=== PATIENT | female | born 1995 | race Caucasian/White ===

== ENCOUNTER 2019-02-11 21:03 | Emergency (ER) | payer OTHER ==
[2019-02-11] MEDS ORDERED: methylPREDNISolone NA SUCC 125 MG/2 ML VIAL IVPUSH ONE (21:07)
[2019-02-11] MEDS ORDERED: FAMOTIDINE 20 MG/50 ML IVPB 20 MG/50 ML MG IVPB ONE ×3 (21:07→21:28)
[2019-02-11 21:08] VITALS: BP 124/84; PULSE 87; TEMP 99.1; BMI 33.3
[2019-02-11] MEDS ORDERED: methylPREDNISolone NA SUCC 125 MG/2 ML VIAL ONE ×2 (21:11→21:12)
--- NOTE | 2019-02-11 21:11 | PDOC ---
Rapid Medical Evaluation Time Seen by Provider: 02/11/19 21:05 Medical Evaluation: 02/11/19 21:05 I have performed a brief in-person evaluation of this patient. The patient presents with a chief complaint of: 5wk F c/o throat and chest tightness, lip tingling after eating a nectarine. NO prior h/o similar symptoms. Pt did not take any meds for symptoms. Pertinent physical exam findings: Mild difficulty breathing. No angioedema. NO uvula edema. No stridor, no wheezing. I have ordered the following: Solumedrol, benadryl, pepcid. The patient will proceed to the ED for further evaluation. 02/11/19 21:09
--- NOTE | 2019-02-11 22:14 | PDOC ---
Documentation entered by Alexandra Jeronimo SCRIBE, acting as scribe for Angelika Mena MD. Angelika Mena MD: This documentation has been prepared by the larryibePhani Lincy, SCRIBE, under my direction and personally reviewed by me in its entirety. I confirm that the documentation accurately reflects all work, treatment, procedures, and medical decision making performed by me. Attending Attestation - Resident Resident Name: Navin Tobar - ED Attending Attestation I have performed the following: I have examined & evaluated the patient, The case was reviewed & discussed with the resident, I agree w/resident's findings & plan, Exceptions are as noted - HPI HPI: 02/11/19 22:21 The patient is a 23-year-old female, currently 5 weeks , with no reported past medical history presents to the emergency department s/p an allergic reaction after eating a nectarine. 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 The patient states her lip began to swell, and she had trouble swallowing. The patient reports she also endorses dizziness, SOB, and chest pain. Denies prior use of Epi-pen. Denies hx of severe or mild allergic reactions. since then she is complaining of lower abd cramping. no vag bleeding. 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 (next appointment Feb 24) 02/12/19 00:38 - Physicial Exam PE: 02/11/19 22:12 awake alert mild lower lip swelling. no uvular edema. no stridor. lungs clear bilat no wheezing. heart rrr no jmrg abd soft mild nontender. ext wwp no edema. skin warm and dry no rash. - Medical Decision Making 02/11/19 22:10 23 yo at 5 weeks LMP 01/05 here with allergic reaction after eating a nectarine. no h/o severe allergic reaction in the past. no n/v c/o feelig lightheaded and sob with chest pain . noted lip swelling and buring sensation. lower lip. no syncope. no h/o prior allergies. no new meds. is currently . c/o cramping, no bleeding. has not confirmed iup. follows with OB at [address] ( Ericka arana) on exam pt with minimal lip swelling. no uvular edema. no stridor. no wheezing no rash. plan treat with pepcid steroids and benadryl. will call pt ob. will fidel require steroids for 3 days. will dc with epi pen for severity of reaction. will also eval iup due to lower abd cramping. pt currently . 02/12/19 01:50 pt tvus with gestational sac. yolk sac, no pole visualized. will dc on steroids x 3 days. benadryl as needed for itching. pt given rx for epi pen for severe allergic. reaction recommend noelle, ob/ surgical manager fu.
--- NOTE | 2019-02-11 22:23 | PDOC ---
History of Present Illness <StephynathanAngelika - Last Filed: 02/12/19 01:51> - General History Source: Patient Exam Limitations: No Limitations - History of Present Illness Initial Comments: 02/11/19 22:18 23 yo , 5 wk F presents soon after ingestion of nectarine causing lip swelling and burning, non-radiating chest pain, SOB, and dizziness. Patient felt her throat was closing a little but maintained airway. Denies rash, abdominal pain, n/v/d, and hives. Was given steroids, benadryl, and PPI - felt cramps after but no vaginal bleeding or discharge. 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 @ [address] <Navin Tobar - Last Filed: 02/12/19 21:41> - General Chief Complaint: Allergic Reaction Stated Complaint: ALLERGIC REACTION Time Seen by Provider: 02/11/19 21:05 Past History <Angelika Mena - Last Filed: 02/12/19 01:51> - Past Medical History COPD: No - Suicide/Smoking/Psychosocial Hx Smoking History: Never smoked <Navin Tobar - Last Filed: 02/12/19 21:41> - Past Medical History Allergies/Adverse Reactions: Allergies Allergy/AdvReac Type Severity Reaction Status Date / Time No Known Allergies Allergy Verified 02/11/19 21:06 Home Medications: Ambulatory Orders Epinephrine [Epipen] 0.3 mg IJ ONCE PRN #1 auto.injct 02/12/19 predniSONE [Deltasone -] 20 mg PO DAILY #3 tablet 02/12/19 Review of Systems - Review of Systems Able to Perform ROS?: Yes Is the patient limited Mohawk proficient: No Constitutional: Yes: Symptoms Reported, See HPI, Diaphoresis. No: Chills, Fever , Loss of Appetite, Malaise, Night Sweats, Weakness, Weight Stable, Unintentional Wgt. Loss, Unexplained wgt Loss, Other HEENTM: Yes: Symptoms Reported, See HPI, Throat Swelling (see hpi, maintained airway ). No: Eye Pain, Blurred Vision, Tearing, Recent change in vision, Double Vision, Cataracts, Ear Pain, Ocular Prothesis, Ear Discharge, Nose Pain, Nose Congestion, Tinnitus, Nose Bleeding, Hearing Loss, Throat Pain, Mouth Pain , Dental Problems, Difficulty Swallowing, Mouth Swelling, Other Respiratory: Yes: See HPI, Shortness of Breath. No: Cough, Orthopnea, Stridor, Wheezing Cardiac (ROS): Yes: See HPI, Chest Pain, Lightheadedness. No: Irregular Heart Rate, Palpitations, Syncope, Chest Tightness ABD/GI: No: Symptoms Reported, See HPI, Abdominal Distended, Abd. Pain w/ defecation, Blood Streaked Bowels, Constipated, Diarrhea, Difficulty Swallowing , Nausea, Poor Appetite, Poor Fluid Intake, Rectal Bleeding, Vomiting, Indigestion, Abdominal cramping, Tarry Stools, Other : No: Symptoms Reported, See HPI, Burning, Dysuria, Discharge, Frequency, Flank Pain, Hematuria, Incontinence, Pain, Urgency, Testicular Mass, Testicular Swelling, Lesions, Testicular Pain, Other Musculoskeletal: No: Symptoms Reported, See HPI, Back Pain, Gout, Joint Pain, Joint Swelling, Muscle Pain, Muscle Weakness, Neck Pain, Joint Stiffness, Other Integumentary: No: Symptoms Reported, See HPI, Bruising, Change in Color, Change in Hair/Nails, Dryness, Erythema, Flushing, Lesions, Lumps, Pallor, Pruritus, Rash, Sweating, Other Neurological: Yes: See HPI, Dizziness. No: Headache, Numbness, Paresthesia, Pre -Existing Deficit, Seizure, Tingling, Tremors, Weakness, Unsteady Gait, Ataxia, Other Psychiatric: No: Anxiety, Depression, Frequent Crying, Stressors, Sleep Pattern Change, Emotional Problems, Mood Swings, Change in Appetite, Other Endocrine: No: Symptoms Reported, See HPI, Excessive Sweating, Flushing, Intolerance to Cold, Intolerance to Heat, Increased Hunger, Increased Thirst, Increased Urine, Unexplained Weight Gain, Unexplained Weight Loss, Change in Weight, Other Hematologic/Lymphatic: No: Symptoms Reported, See HPI, Anemia, Blood Clots, Easy Bleeding, Easy Bruising, Bleeding Diathesis, Lymph Node Abnormalities, Swollen Glands, Other All Other Systems: Reviewed and Negative <Navin Tobar - Last Filed: 02/12/19 21:41> *Physical Exam - Vital Signs Last Vital Signs Temp Pulse Resp BP Pulse Ox 99.1 F 87 24 H 124/84 98 02/11/19 21:06 02/11/19 21:06 02/11/19 21:06 02/11/19 21:06 02/11/19 21:06 <Angelika Mena - Last Filed: 02/12/19 01:51> - Vital Signs Last Vital Signs Temp Pulse Resp BP Pulse Ox 99.1 F 87 24 H 124/84 98 02/11/19 21:06 02/11/19 21:06 02/11/19 21:06 02/11/19 21:06 02/11/19 21:06 - Physical Exam Comments: 02/11/19 22:26 GEN: Resting comfortably in bed, NAD HEENT: NC/AT, EOMI, PERRLA, CN II-XII intact. No uvular deviation or edema. No posterior pharynx edema or erythema. Lips mildly edematous. Moist mucous membranes CV: S1/S2, RRR, no m/r/g LUNG: CTAB, no wheezes, crackles, rales, rhonchi. No stridor GI: soft, ndnt, +BS. Neg CVAT b/l. No masses EXTREMITIES: 2+ distal pulses. No LE edema. No obvious deformities of all extremities NEURO: AAOx3, conversing appropriately, moving all extremities SKIN: no rashes, hives, or erythema noted <Navin Tobar - Last Filed: 02/12/19 21:41> ED Treatment Course - LABORATORY CBC & Chemistry Diagram: 02/11/19 23:00 02/11/19 23:00 - ADDITIONAL ORDERS Additional order review: Laboratory Results 02/11/19 02/11/19 23:00 23:00 Sodium 138 Potassium 3.9 Chloride 104 Carbon Dioxide 28 Anion Gap 6 L BUN 10.0 Creatinine 0.6 Est GFR (CKD-EPI)AfAm 148.90 Est GFR (CKD-EPI)NonAf 128.48 Random Glucose 94 Calcium 9.4 Total Bilirubin 0.3 AST 16 ALT 25 Alkaline Phosphatase 66 Total Protein 7.4 Albumin 3.7 Beta HCG, Quant 1616.5 02/11/19 23:00 RBC 4.17 MCV 88.3 MCHC 33.6 RDW 14.1 MPV 8.4 Neutrophils % 74.9 Lymphocytes % 20.6 Monocytes % 3.1 L Eosinophils % 1.0 Basophils % 0.4 - Medications Given in the ED: ED Medications Discontinued Medications Generic Name Dose Route Start Last Admin Trade Name Freq PRN Reason Stop Dose Admin Diphenhydramine HCl 50 mg 02/11/19 21:06 02/11/19 21:21 Benadryl Injection - IVPUSH 02/11/19 21:07 50 mg ONCE ONE Administration Famotidine/Sodium Chloride 20 mg in 50 mls @ 100 mls/hr 02/11/19 21:07 21:26 Pepcid 20 Mg Premixed Ivpb - IVPB 02/11/19 21:36 100 mls/hr ONCE ONE Administration Methylprednisolone Sodium Succinate 125 mg 02/11/19 21:07 02/11/19 21:21 Solu-Medrol - IVPUSH 02/11/19 21:08 125 mg ONCE ONE Administration <Angelika Mena - Last Filed: 02/12/19 01:51> - LABORATORY CBC & Chemistry Diagram: 02/11/19 23:00 02/11/19 23:00 - RADIOLOGY Radiology Studies Ordered: Category Date Time Status TRANSVAGINAL ULTRASOUND US [US] Stat Ultrasound 02/11/19 22:10 Ordered - Medications Given in the ED: ED Medications Discontinued Medications Generic Name Dose Route Start Last Admin Trade Name Melody PRN Reason Stop Dose Admin Diphenhydramine HCl 50 mg 02/11/19 21:06 02/11/19 21:21 Benadryl Injection - IVPUSH 02/11/19 21:07 50 mg ONCE ONE Administration Famotidine/Sodium Chloride 20 mg in 50 mls @ 100 mls/hr 02/11/19 21:07 21:26 Pepcid 20 Mg Premixed Ivpb - IVPB 02/11/19 21:36 100 mls/hr ONCE ONE Administration Methylprednisolone Sodium Succinate 125 mg 02/11/19 21:07 02/11/19 21:21 Solu-Medrol - IVPUSH 02/11/19 21:08 125 mg ONCE ONE Administration <Navin Tobar - Last Filed: 02/12/19 21:41> Medical Decision Making - Medical Decision Making 02/11/19 22:28 23 yo F @ 5 weeks presents with allergic reaction (lip swelling and burning, SOB, chest pain) after nectarine ingestion. Received benadryl, PPI , and steroids in rapid assessment. Patient feeling better at time of evaluation , no signs of airway, breathing, or circulatory compromise. No uvular deviation or edema, no posterior pharynx edema noted, and no stridor on exam. Allergic reaction in - CBC, CMP, B-hCG - Benadryl, steroids, and PPI given - TVUS - Obs 3 hours Dispo: home w/ epi 02/11/19 23:40 Pt reassessed - she is feeling better, will continue to monitor, f/u US Labs reviewed 02/11/19 23:59 Signed out to Night team <Navin Tobar - Last Filed: 02/12/19 21:41> *DC/Admit/Observation/Transfer <Angelika Mena - Last Filed: 02/12/19 01:51> - Discharge Dispostion Decision to Admit order: No <Navin Tobar - Last Filed: 02/12/19 21:41> Diagnosis at time of Disposition: Allergic reaction Qualifiers: Encounter type: initial encounter Qualified Code(s): T78.40XA - Allergy, unspecified, initial encounter - Discharge Dispostion Disposition: HOME Condition at time of disposition: Good - Prescriptions Prescriptions: Epinephrine [Epipen] 0.3 mg IJ ONCE PRN #1 auto.injct PRN Reason: allergic reaction predniSONE [Deltasone -] 20 mg PO DAILY #3 tablet - Patient Instructions Printed Discharge Instructions: Medications and , DI for General Allergic Reactions Additional Instructions: You were assessed and treated in the Emergency Department. We highly recommend follow up for further work up. Please follow up with your primary care physician for further workup in the next 3-4 days. Please pick pack worker an epi-pen from your pharmacy. Please return to the Emergency Department if you experience any of the following : - worsening of your symptoms - shortness of breath, wheezing - chest pain - swelling of your lips or throat - vaginal bleeding - change in behavior - any symptoms that concern you you should take prednisone 20 mg starting tomrrow 02/12 for 3 days one tab daily. you should also take vitamins. 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
[2019-02-11 23:08] LABS: BASO % 0.4 % (0-2.0); HEMATOCRIT 36.9 % (32.4-45.2); HEMOGLOBIN 12.4 GM/dL (10.7-15.3); LYMPH % 20.6 % (8-40); MCH 29.7 pg (25.7-33.7); MCHC 33.6 g/dl (32.0-36.0); MEAN CELL VOLUME 88.3 fl (80-96); MEAN PLT VOLUME 8.4 fl (7.5-11.1); MONO % 3.1 % (3.8-10.2); NEUT % 74.9 % (42.8-82.8); PLATELET COUNT 322 K/MM3 (134-434); RBC 4.17 M/mm3 (3.60-5.2); RDW 14.1 % (11.6-15.6); WHITE BLOOD COUNT 11.6 K/mm3 (4.0-10.0)
[2019-02-11 23:26] LABS: ALBUMIN 3.7 g/dl (3.4-5.0); BILIRUBIN,TOTAL 0.3 mg/dL (0.2-1); CALCIUM 9.4 mg/dL (8.5-10.1); CREATININE 0.6 mg/dL (0.55-1.3); POTASSIUM 3.9 mmol/L (3.5-5.1); TOT PROT 7.4 g/dl (6.4-8.2)
== END 2019-02-12 02:21 | disposition home or self-care (01) ==
LOC: JER 21:03
PROC: 3E033GC Introduction of Other Therapeutic Substance into Peripheral Vein, Percutaneous Approach (ICD-10-PCS; principal; 2019-02-11)
PROC: 3E033GC Introduction of Other Therapeutic Substance into Peripheral Vein, Percutaneous Approach (ICD-10-PCS; 2019-02-11)
PROC: 3E0333Z Introduction of Anti-inflammatory into Peripheral Vein, Percutaneous Approach (ICD-10-PCS; 2019-02-11)
DX: O99.89 Other specified diseases and conditions complicating pregnancy, childbirth and the puerperium (principal); T78.1XXA Other adverse food reactions, not elsewhere classified, initial encounter; X58.XXXA Exposure to other specified factors, initial encounter; Z3A.01 Less than 8 weeks gestation of pregnancy
CPT/HCPCS: 36415; 76830-TC; 80053; 84702; 85025; 96365; 96375; 99282-25

== ENCOUNTER 2021-05-18 10:46 | Emergency (ER) | payer OTHER ==
[2021-05-18 10:54] VITALS: BP 113/77; PULSE 97; TEMP 98.8; BMI 30.7
[2021-05-18] MEDS ORDERED: HIV POST EXPOSURE PROPHYLAXIS KIT NR ONE (11:29)
[2021-05-18] MEDS ORDERED: HIV POST EXPOSURE PROPHYLAXIS KIT PO ONE ×2 (11:55→11:59)
[2021-05-18] MEDS ORDERED: DIPHTH,PERTUSS(ACELL),TET 0.5 ML DISP.SYRIN IM ONE ×2 (12:25→12:26)
[2021-05-18 12:32] LABS: BASO % 0.5 % (0-2.0); EOS % 1.7 % (0-4.5); HEMATOCRIT 40.4 % (32.4-45.2); HEMOGLOBIN 13.6 GM/dL (10.7-15.3); LYMPH % 39.1 % (8-40); MCH 29.1 pg (25.7-33.7); MCHC 33.8 g/dl (32.0-36.0); MEAN CELL VOLUME 86.2 fl (80-96); MEAN PLT VOLUME 8.5 fl (7.5-11.1); MONO % 4.6 % (3.8-10.2); NEUT % 54.1 % (42.8-82.8); PLATELET COUNT 322 10^3/uL (134-434); RBC 4.68 M/mm3 (3.60-5.2); RDW 14.4 % (11.6-15.6); WHITE BLOOD COUNT 7.2 K/mm3 (4.0-10.0)
[2021-05-18 12:54] LABS: CALCIUM 9.6 mg/dL (8.5-10.1)
[2021-05-18 12:55] LABS: ALBUMIN 3.6 g/dl (3.4-5.0); BLOOD UREA NITROGEN 9.2 mg/dL (7-18)
[2021-05-18 12:58] LABS: CREATININE 0.5 mg/dL (0.55-1.3)
[2021-05-18 12:59] LABS: BILIRUBIN,TOTAL 0.5 mg/dL (0.2-1); TOT PROT 7.8 g/dl (6.4-8.2)
[2021-05-18 13:54] LABS: HIV INTERPRETATION NEGATIVE (NEGATIVE)
== END 2021-05-18 13:15 | disposition home or self-care (01) ==
LOC: JER 10:46
PROC: 3E0234Z Introduction of Serum, Toxoid and Vaccine into Muscle, Percutaneous Approach (ICD-10-PCS; principal; 2021-05-18)
DX: S61.232A Puncture wound without foreign body of right middle finger without damage to nail, initial encounter (principal); W46.1XXA Contact with contaminated hypodermic needle, initial encounter
CPT/HCPCS: 36415; 80053; 85025; 86704; 86803; 87340; 87389; 87517; 90715; 99283-25

== ENCOUNTER 2022-06-13 23:48 | Emergency (ER) | payer OTHER ==
[2022-06-14 00:05] VITALS: BP 124/87; PULSE 103; RESP 22; TEMP 99.2; BMI 30.7
[2022-06-14] MEDS ORDERED: ALBUTEROL SO4 2.5/IPRATROPIUM 0.5 INH SOL 3 ML VIAL.NEB. NEB ONE (00:08)
[2022-06-14] MEDS ORDERED: ALBUTEROL SO4 HFA INHALER IH ONE (01:21)
== END 2022-06-14 01:24 | disposition home or self-care (01) ==
LOC: JER 23:48
DX: J45.901 Unspecified asthma with (acute) exacerbation (principal)
CPT/HCPCS: 0241U-QW; 99283-25

== ENCOUNTER 2022-08-10 14:19 | Emergency (ER) | payer OTHER ==
[2022-08-10 14:24] VITALS: BP 115/72; PULSE 82; RESP 18; TEMP 97; BMI 31.6
[2022-08-10] MEDS ORDERED: IBUPROFEN 600 MG TABLET (FP) PO ONE ×2 (15:30→15:39)
== END 2022-08-10 15:40 | disposition home or self-care (01) ==
LOC: JERFT 14:19
DX: S96.912A Strain of unspecified muscle and tendon at ankle and foot level, left foot, initial encounter (principal); X50.0XXA Overexertion from strenuous movement or load, initial encounter
CPT/HCPCS: 73610-TC-LT-FY; 99283-25

== ENCOUNTER 2023-07-03 10:09 | Emergency (ER) | payer OTHER ==
[2023-07-03 10:26] VITALS: BP 101/66; PULSE 85; RESP 18; TEMP 98.8; BMI 33.3
[2023-07-03 12:16] LABS: BASO % 0.6 % (0-2.0); EOS % 4.8 % (0-4.5); HEMATOCRIT 41.5 % (32.4-45.2); HEMOGLOBIN 13.9 GM/dL (10.7-15.3); LYMPH % 39.2 % (8-40); MCH 29.6 pg (25.7-33.7); MCHC 33.5 g/dl (32.0-36.0); MEAN CELL VOLUME 88.4 fl (80-96); MONO % 5.7 % (3.8-10.2); NEUT % 49.7 % (42.8-82.8); PLATELET COUNT 344 10^3/uL (134-434); RBC 4.69 M/mm3 (3.60-5.2); RDW 14.1 % (11.6-15.6); WHITE BLOOD COUNT 7.7 K/mm3 (4.0-10.0)
[2023-07-03 12:41] LABS: CALCIUM 9.5 mg/dL (8.5-10.1)
[2023-07-03 12:42] LABS: ALBUMIN 3.9 g/dl (3.4-5.0); BLOOD UREA NITROGEN 10.7 mg/dL (7-18)
[2023-07-03 12:44] LABS: CREATININE 0.6 mg/dL (0.55-1.3); URIC ACID 4.9 mg/dL (2.6-7.2)
[2023-07-03 12:45] LABS: PHOSPHOROUS 3.8 mg/dL (2.5-4.9)
[2023-07-03 12:46] LABS: TOT PROT 7.8 g/dl (6.4-8.2)
[2023-07-03 12:47] LABS: BILIRUBIN,TOTAL 0.5 mg/dL (0.2-1)
[2023-07-03 13:53] LABS: HIV INTERPRETATION NEGATIVE (NEGATIVE)
== END 2023-07-03 13:50 | disposition home or self-care (01) ==
LOC: JERFT 10:09
DX: S61.031A Puncture wound without foreign body of right thumb without damage to nail, initial encounter (principal); W46.0XXA Contact with hypodermic needle, initial encounter
CPT/HCPCS: 36415; 80053; 82465; 82977; 83615; 84100; 84478; 84550; 85025; 86704; 86803; 87340; 87389; 87517; 99283-25

== ENCOUNTER 2023-08-29 11:01 | Emergency (ER) | payer OTHER ==
[2023-08-29 11:09] VITALS: BP 117/78; PULSE 96; RESP 20; TEMP 97.8; BMI 33.3
[2023-08-29] MEDS ORDERED: KETOROLAC TROMETHAMINE 30 MG/1 ML VIAL ONE (11:31)
[2023-08-29] MEDS ORDERED: AMOX TR/POT CLAV 875MG/125MG TABLETS (FP) ONE (11:31)
[2023-08-29] MEDS: AMOX TR/POT CLAV 875MG/125MG TABLETS (FP) PO ONE (11:35)
[2023-08-29] MEDS: KETOROLAC TROMETHAMINE 30 MG/1 ML VIAL IM ONE (11:35)
== END 2023-08-29 11:38 | disposition home or self-care (01) ==
LOC: JERFT 11:01
PROC: 3E0233Z Introduction of Anti-inflammatory into Muscle, Percutaneous Approach (ICD-10-PCS; principal; 2023-08-29)
DX: R51.9 Headache, unspecified (principal); R09.81 Nasal congestion; J32.9 Chronic sinusitis, unspecified; Z20.822 Contact with and (suspected) exposure to COVID-19
CPT/HCPCS: 0241U-QW; 99284-25

== ENCOUNTER 2023-11-02 14:22 | Emergency (ER) | payer OTHER ==
[2023-11-02 14:43] VITALS: RESP 18; BMI 33.3
[2023-11-02] MEDS ORDERED: ONDANSETRON 4 MG/2 ML VIAL ONE (15:32)
[2023-11-02] MEDS ORDERED: ACETAMINOPHEN INJECTION 100 ML IVPB ONE (15:32)
[2023-11-02] MEDS: ACETAMINOPHEN 1000 MG/100 ML BAG IVPB ONE (15:44)
[2023-11-02] MEDS: SODIUM CHLORIDE 0.9% 500 ML INFUS.BAG IV ONE (15:44)
[2023-11-02] MEDS: ONDANSETRON 4 MG/2 ML VIAL IVPUSH ONE (15:44)
[2023-11-02 15:47] LABS: BASO % 0.6 % (0-2.0); EOS % 5.3 % (0-4.5); HEMATOCRIT 39.4 % (32.4-45.2); HEMOGLOBIN 13.2 GM/dL (10.7-15.3); LYMPH % 37.6 % (8-40); MCH 29.4 pg (25.7-33.7); MCHC 33.4 g/dl (32.0-36.0); MEAN PLT VOLUME 8.4 fl (7.5-11.1); MONO % 6.9 % (3.8-10.2); NEUT % 49.6 % (42.8-82.8); PLATELET COUNT 337 10^3/uL (134-434); RBC 4.47 M/mm3 (3.60-5.2); RDW 14.6 % (11.6-15.6); WHITE BLOOD COUNT 9.7 K/mm3 (4.0-10.0)
[2023-11-02 15:48] LABS: EPI CELLS >36 /uL (0-25.1); HCG,QUALITATIVE URINE Negative; HYALINE CASTS 0 /uL (0-3.1); PH,URINE 7.5 (5.0-8.0); URINE APPEARANCE CLOUDY; URINE BACTERIA 1537 /uL (0-1359); URINE BILIRUBIN NEGATIVE (NEGATIVE); URINE COLOR YELLOW; URINE GLUCOSE (UA) NEGATIVE (NEGATIVE); URINE KETONE NEGATIVE (NEGATIVE); URINE LEUK ESTERASE TRACE (NEGATIVE); URINE NITRITE NEGATIVE (NEGATIVE); URINE PROTEIN NEGATIVE (NEGATIVE); URINE RBC 11 /uL (0-23.9); URINE UROBILINOGEN 0.2 mg/dL (0.2-1.0); URINE WBC 40 /uL (0-25.8)
[2023-11-02 15:53] LABS: INR 0.98 (0.83-1.09); PROTHROMBIN TIME (PATIENT) 11.4 SEC (9.7-13.0)
[2023-11-02 17:14] LABS: POTASSIUM 3.7 mmol/L (3.5-5.1)
[2023-11-02 17:16] LABS: CALCIUM 9.4 mg/dL (8.5-10.1)
[2023-11-02 17:17] LABS: ALBUMIN 3.6 g/dl (3.4-5.0); BLOOD UREA NITROGEN 6.2 mg/dL (7-18)
[2023-11-02 17:20] LABS: CREATININE 0.6 mg/dL (0.55-1.3)
[2023-11-02 17:21] LABS: BILIRUBIN,TOTAL 0.3 mg/dL (0.2-1); TOT PROT 7.4 g/dl (6.4-8.2)
[2023-11-02 18:57] VITALS: BP 100/61; PULSE 82; TEMP 98.7
== END 2023-11-02 19:00 | disposition home or self-care (01) ==
LOC: JER 14:22
PROC: 3E030NZ Introduction of Analgesics, Hypnotics, Sedatives into Peripheral Vein, Open Approach (ICD-10-PCS; principal; 2023-11-02)
PROC: 3E030GC Introduction of Other Therapeutic Substance into Peripheral Vein, Open Approach (ICD-10-PCS; 2023-11-02)
DX: R10.31 Right lower quadrant pain (principal); R11.2 Nausea with vomiting, unspecified; R19.7 Diarrhea, unspecified
CPT/HCPCS: 36415; 74177-TC; 80053; 81003; 84703; 85025; 85610; 85730; 87086; 99285-25; J0131; Q9967

== ENCOUNTER 2024-07-11 07:40 | Day surgery (SDC) | payer OTHER ==
[2024-07-08 09:30] VITALS: BMI 35.7
[2024-07-11] MEDS ORDERED: ONDANSETRON 4 MG/2 ML VIAL IVPUSH PRN (08:53)
[2024-07-11] MEDS ORDERED: IBUPROFEN 400 MG TABLET (FP) PO PRN (09:45)
[2024-07-11] MEDS ORDERED: ACETAMINOPHEN 325 MG TABLET (FP) PO PRN (09:45)
[2024-07-11 11:11] VITALS: BP 102/62; RESP 18
[2024-07-11 11:25] VITALS: PULSE 86; TEMP 97.8
[2024-07-11] MEDS ORDERED: oxyCODONE HCL 5 MG TABLET ONE (11:35)
[2024-07-11] MEDS: oxyCODONE HCL 5 MG TABLET PO PRN (11:37)
== END 2024-07-11 12:05 | disposition home or self-care (01) ==
LOC: JASU-SURG 07:40
PROVIDERS: ATTEND Specialist
PROC: 0UBG7ZZ Excision of Vagina, Via Natural or Artificial Opening (ICD-10-PCS; 2024-07-11)
PROC: 0UJH8ZZ Inspection of Vagina and Cul-de-sac, Via Natural or Artificial Opening Endoscopic (ICD-10-PCS; principal; 2024-07-11 08:00)
PROC: 0UBC7ZX Excision of Cervix, Via Natural or Artificial Opening, Diagnostic (ICD-10-PCS; 2024-07-11 08:00)
DX: D06.7 Carcinoma in situ of other parts of cervix (principal)
CPT/HCPCS: 88300-TC; 88305-TC; 88307-TC; 88341-TC; 88342-TC; 94760